=== PATIENT | female | born 1980 | race Caucasian/White ===

== ENCOUNTER → 2016-10-31 | Outpatient (CLI) | payer BC, OTHER ==
--- NOTE | 2016-10-31 11:51 | DI ---
RIGHT KNEE, 10/31/2016 11:26 AM: Clinical History: Right knee pain. Previous Exam: None at this facility. 4 views are submitted. The AP and tunnel projections are weight bearing views. There is no acute soft tissue, osseous, or joint abnormality. There is mild narrowing of the medial compartment consistent with degenerative arthritic change. 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
== END ==
LOC: MOB RAD 11:27
PROVIDERS: ATTEND Physician Assistant Medical
DX: M25.561 Pain in right knee (principal); M17.11 Unilateral primary osteoarthritis, right knee
CPT/HCPCS: 73564

== ENCOUNTER → 2016-12-05 | Outpatient (CLI) | payer OTHER, BC ==
--- NOTE | 2016-12-05 23:02 | DI ---
MRI LOW EXTREMITY JNT W/O CN,12/05/2016 10:51 AM: Clinical History: Right knee pain. Previous Exam: None at this facility. Findings: Multiplanar MR images are obtained through the right knee without contrast. Bony alignment is anatomic. No fractures are seen. Marrow signal is preserved. 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 The anterior and posterior cruciate ligaments are intact. The medial and lateral collateral ligaments are also intact. Signal within the musculature is unremarkable. The major vascular flow voids are also unremarkable. The anterior and posterior cruciate ligaments are intact. The medial and lateral collateral ligaments are intact. Medial and lateral menisci are normal. There are a few scattered full-thickness osteochondral defects involving both the medial and lateral patellar facets with subchondral cyst formation. The quadriceps and patellar tendons are unremarkable. Popliteus tendon is unremarkable as is the posterior lateral corner. Impression: Full-thickness osteochondral defects involving the medial and lateral patellar facets with some subch ondral cyst formation. Very small knee joint effusion.
== END ==
LOC: MRI 10:48
PROVIDERS: ATTEND Orthopaedic Surgery
DX: M25.561 Pain in right knee (principal); M25.461 Effusion, right knee
CPT/HCPCS: 73721

== ENCOUNTER 2017-01-05 15:00 | Emergency (ER) | payer OTHER, BC ==
[2017-01-05 15:11] VITALS: RESP 18; TEMP 97.7
--- NOTE | 2017-01-05 17:23 | PDOC ---
Foot / Ankle Injury - General Chief Complaint: Lower Extremity Problem/Injury Stated Complaint: right ankle pain Date Seen by Provider: 01/05/17 Time Seen by Provider: 15:00 Source: POSITIVE: Patient Exam Limitations: POSITIVE: No limitations Nurse's Notes Reviewed & Considered: Yes - History of Present Illness Initial Comments: The patient is a 36-year-old female. She states that earlier today she was walking on some uneven ground and forced her right foot into inversion. She complains of pain over the lateral and medial aspect of the right ankle, lateral greater than medial. No paresthesias or focal sensory or motor symptoms. She denies any associated hip, knee or other injuries. Have you received a tetanus shot in the past 10 years?: No Location: Right Ankle Timing: REPORTS: Abrupt Duration: 4-6 hours Severity: Moderate Quality: REPORTS: "Pain" (patient states she is not able to bear weight on the right leg) Context: REPORTS: Twist Modifying Factors: REPORTS: Movement, Other (weightbearing) Associated Symptoms: REPORTS: Swelling Any Prior Injuries Related to Current Complaint?: No - Patient Allergies Allergies/Adverse Reactions: Allergies Allergy/AdvReac Type Severity Reaction Status Date / Time No Known Allergies Allergy Unverified 03/14/16 08:41 - Patient Home Medications Home Medications: Home Medications NK [No Home Medications Reported] 08/03/15 Past Medical History - heen HEENT History: Denies History Cardiovascular History: Denies History Respiratory History: Denies History Gastrointestinal History: Denies History Genitourinary History: Denies History Endocrine History: Denies History Musculoskeletal History: Denies History Neurological History: Denies History Blood Disorders: Denies History Psychiatric History: Denies History Female Reproductive History: Denies History Obstetrical History: Denies History Cancer History: Denies History In Past Year Been Physically Harmed or Verbally Threatened: No History of MDRO: No Tobacco Use: Never Smoker Alcohol Use: None Substance Use Type: None Previous Surgical History: Yes Type / Date of Surgery: tubal ligation. tubal ligation reversal. ectopic pregnacy resulting in left oopherectomy and salpingectomy Significant Family History: No pertinent family hx Past Medical History Reviewed: Reviewed - No Changes ROS - Limitations ROS Limitations: No Limitations Constitution: REPORTS: Denies Symptoms Cardiovascular: REPORTS: Denies Cardiac Symptoms Respiratory: REPORTS: Denies Resp Symptoms Neurological: REPORTS: Denies Neuro Symptoms Gastrointestinal: REPORTS: Denies GI Symptoms Endocrine: REPORTS: Denies Symptoms Musculoskeletal: REPORTS: Joint Pain (Right ankle) Genitourinary: REPORTS: Denies Symptoms Eyes: REPORTS: Denies Symptoms ENT: REPORTS: Denies Symptoms Skin: REPORTS: Denies Skin Symptoms Lympathic: REPORTS: Denies Lympathic Symptoms Immunologic: POSITIVE: Denies Symptoms Psychiatric: POSITIVE: Denies Psych Symptoms Foot / Ankle Exam - General Appearance General Appearance: POSITIVE: Alert, Cooperative, No Acute Distress. NEGATIVE: No Evidence of Trauma - Extremities Foot: POSITIVE: Normal Inspection, Non-Tender Ankle: POSITIVE: Normal ROM, Stable, Soft-Tissue Tenderness, Bony Tenderness, Swelling (most prominently over the lateral aspect of the ankle), See Diagram Gait: POSITIVE: Unable to Bear Weight Neuro: POSITIVE: Sensation Normal, Motor Normal Vascular: POSITIVE: No Vascular Compromise, Full Pulses, Equal Pulses Tendons: POSITIVE: Tendon Function Normal Skin: POSITIVE: Warm, Dry - HEENT HEENT: POSITIVE: Head Inspection Nml, Eyes Inspection Nml, Ears Inspection Nml, Nose Inspection Nml, Oral/Dental Inspect. Nml, Pharynx Inspect. Nml, PERRL, EOMI - Neck / Back Neck / Back: Normal Inspection - Respiratory / CVS Respiratory / CVS: POSITIVE: Chest Non-Tender, No Respiratory Distress, Heart Sounds Normal, Regular Rate/Rhythm, Breath Sounds Normal Peripheral Pulses: Radial (R): 2+, Radial (L): 2+, Dorsalis-pedis (R): 2+, Dorsalis-pedis (L): 2+ Images - Lower Extremities Lower Extremities: 1 - Pain on palpation and some swelling 2 - Pain on palpation Procedures - Splinting Time Splint Applied: 15:45 Location: right ankle Pre-Proc Neuro Vasc Exam: Normal Splint Type: CAM Walker, Crutches Splint Form: Short Extremity Applied By:: Nurse Foot / Ankle Progress - Results Reviewed by me Pain Medication Addressed: POSITIVE: Yes, Patient Refused (patient refused; states she will take Tylenol or Advil as necessary) School/Work Release Addressed: POSITIVE: Yes (no weight bearing for for 5 days) Xrays/CTs/US Reviewed by me: Yes Discussed with Radiologist: No Radiology Results: POSITIVE: Right, Ankle (normal) Radiology Findings: Right ankle shows no fractures or dislocations. - Patient's Progress Re-Examine Time:: 16:00 Re-Examine Comment: Some pain relief with Cam Walker Status: POSITIVE: Improved, Re-Examined - Consult Counseled: POSITIVE: Patient, RE: Radiology Results, RE: DX, RE: Need for F/U Patient Care Time - Estimated PCT Patient Care Time (In Minutes): 35 Vital Signs - Recent Vital Signs Vital Signs: Vital Signs (Last 8 hours) Temp Pulse Resp BP Pulse Ox 01/05/17 15:02 97.7 F 80 18 121/85 96 - VS Reviewed Vital Signs Reviewed: Yes Discharge Clinical Impression: Sprain of ankle Discharge Disposition: Discharged to Home Condition: Stable Patient Instructions Given at Discharge: Ankle Sprain (ED) Additional Instructions: I see no fractures or dislocations on your x-ray. I believe you have a ankle sprain. Please wear cam walker and use crutches and bear no weight on your right leg for for 5 days, and then, try bearing weight while still wearing a cam walker. Use cam walker for another 10 days or so. Follow-up with your primary care doctor or orthopedist if you're not able to bear weight comfortably in 2 weeks. Return here anytime if condition worsens in any way. Elevate leg. Cool compresses today. Advil or Tylenol for pain. Follow Up With: IRMA LOCKE [Primary Care Provider] - (Instructions as above. Follow-up with your primary care provider or orthopedist. Return here anytime if condition worsens in any way.)
--- NOTE | 2017-01-06 06:32 | DI ---
XR ANKLE COMPLETE MIN 3VW,01/05/2017 3:09 PM: Clinical History: Trauma Previous Exam: None at this facility. Findings: 3 views of the right ankle are obtained, and demonstrate anatomic alignment without fractures. Surrou nding soft tissues are unremarkable. Impression: Normal right ankle.
== END 2017-01-05 16:14 | disposition home or self-care (01) ==
LOC: ER 15:00
DX: S93.401A Sprain of unspecified ligament of right ankle, initial encounter (principal); X50.1XXA Overexertion from prolonged static or awkward postures, initial encounter
CPT/HCPCS: 73610; 99282